=== PATIENT | male | born 1940 | race Caucasian/White ===

== ENCOUNTER 2019-04-07 13:18 | Emergency (ER) | payer MEDICARE, BC ==
[~2019-04-07] VITALS: Ht 167.6 cm; Wt 73.5 kg
[2019-04-07 13:25] VITALS: BP 133/60
[2019-04-07] MEDS ORDERED: BACTRIM DS TAB1 EACH PO (13:30)
[2019-04-07] MEDS ORDERED: KEFLEX500 M1 PO (13:30)
[2019-04-07] MEDS ORDERED: LOPRESSOR100 M1 PO (13:31)
[2019-04-07] MEDS ORDERED: COUMADIN 4 MG TA4 M1 PO (13:31)
[2019-04-07] MEDS ORDERED: LIPITOR40 MG PO (13:31)
== END 2019-04-07 13:39 | disposition home or self-care (01) ==
LOC: M.ERS 13:18
DX: L03.113 Cellulitis of right upper limb (principal)